=== PATIENT | female | born 1940 | race African-American/Black ===

== ENCOUNTER 2018-01-17 19:24 | Emergency (ER) | payer OTHER ==
[~2018-01-17] VITALS: Ht 152.4 cm; Wt 56.7 kg
[~2018-01-17 19:24] MED LIST: ALENDRONATE SOD70 MG; BUSPIRONE HCL5 MG; CARVEDILOL6.25 MG; Coreg PO; EXELON4.5 MG; GLUCOPHAGE XR500 MG; IMDUR30 MG PO; LASIX40 MG; LASIX40 MG PO; LEXAPRO20 MG; NAMENDA10 MG; PRINIVIL5 MG; SEPTRA DS TABLE1 TAB PO; SPIRONOLACTONE25 MG PO; SYNTHROID50 MCG; ZOCOR20 MG; ZOCOR40 MG; [UNRECOGNIZED DRUG - OTHER]
== END 2018-01-17 23:41 | disposition home or self-care (01) ==
LOC: ER 19:24
DX: R42 Dizziness and giddiness (principal)